=== PATIENT | male | born 1980 | race Caucasian/White ===

== ENCOUNTER 2020-08-29 23:48 | Emergency (ER) | payer OTHER ==
[~2020-08-29] VITALS: Ht 175.3 cm; Wt 81.0 kg
[2020-08-30 00:07] VITALS: BP 138/70
--- NOTE | 2020-08-30 01:20 | RAD ---
XR RT WRIST 3VIEWS History: Reason: Right wrist injury, pain / Spl. Instructions: / History: Technique: 3 views right wrist Comparison: None. Findings: Normal alignment. No fracture. Soft tissues unremarkable. Impression: 1. No acute osseous abnormality. Electronically signed by: Hussein Wheat DO (08/30/2020 1:17 AM) [facility]
[2020-08-30] MEDS ORDERED: predniSONE 10 MG TABLET. PO ONE (01:30)
[2020-08-30] MEDS ORDERED: PRED50TA PO (01:34)
--- NOTE | 2020-08-30 01:35 | PHYS DOC ---
Past History Past Medical History: No Pertinent History Past Surgical History: No Surgical History Alcohol Use: None General Adult EDM: Chief Complaint: WRIST PAIN HPI: HPI: 40-year-old male presents with right wrist pain. The patient just moved here. He has . He has been moving a lot of boxes around. He started to have an aching in his wrist yesterday evening, but he woke up this morning and had significantly decreased use of his right hand. It is most painful to extend his wrist and to radially deviate. His gold and silver assayer strength is decreased. He denies numbness, tingling, or altered sensation. No direct injury or trauma. He has no other complaints this time. Review of Systems: Review of Systems: Constitutional: Denies fever or chills Eyes: Denies change in visual acuity HENT: Denies nasal congestion or sore throat Respiratory: Denies cough or shortness of breath Cardiovascular: Denies chest pain or edema GI: Denies abdominal pain, nausea, vomiting, bloody stools or diarrhea : Denies dysuria Musculoskeletal: Right wrist pain Integument: Denies rash Neurologic: Denies headache, focal weakness or sensory changes Endocrine: Denies polyuria or polydipsia Lymphatic: Denies swollen glands Psychiatric: Denies depression or anxiety Current Medications: Current Meds: Current Medications Medications (Trade) Dose Ordered Sig/[facility] Start Time Stop Time Status Last Admin Dose Admin Prednisone (Prednisone) 50 mg 1X ONCE 08/30/20 01:30 08/30/20 01:31 Allergies: Allergies: Allergies Coded Allergies Type Severity Reaction Last Updated Verified No Known Drug Allergies 08/30/20 No Physical Exam: PE: Constitutional: Well developed, well nourished, no acute distress, non-toxic appearance. [] HENT: Normocephalic, atraumatic, bilateral external ears normal, oropharynx moist, no oral exudates, nose normal. [] Eyes: PERRLA, EOMI, conjunctiva normal, no discharge. [] Neck: Normal range of motion, no tenderness, supple, no stridor. [] Cardiovascular:Heart rate regular rhythm, no murmur [] Lungs & Thorax: Bilateral breath sounds clear to auscultation [] Abdomen: Bowel sounds normal, soft, no tenderness, no masses, no pulsatile masses. [] Skin: Warm, dry, no erythema, no rash. [] Back: No tenderness, no CVA tenderness. [] Extremities: Right wrist with pain with active extension and radial deviation. No pain with passive motions in these planes. Decreased gold and silver assayer strength due to discomfort. [] Neurologic: Alert and oriented X 3, normal motor function, normal sensory function, no focal deficits noted. [] Psychologic: Affect normal, judgement normal, mood normal. [] Current Patient Data: Vital Signs: Vital Signs Date Time Temp Pulse Resp B/P (MAP) Pulse Ox O2 Delivery O2 Flow Rate FiO2 08/30/20 00:07 97.2 70 16 138/70 (92) 98 Room Air EKG: EKG: [] Radiology/Procedures: Radiology/Procedures: [] Impressions: XR RT WRIST 3VIEWS History: Reason: Right wrist injury, pain / Spl. Instructions: / History: Technique: 3 views right wrist Comparison: None. Findings: Normal alignment. No fracture. Soft tissues unremarkable. Impression: 1. No acute osseous abnormality. Electronically signed by: Norman Aj DO (08/30/2020 1:17 AM) [facility] DICTATED AND SIGNED BY: NORMAN AJ DO DATE: 08/30/20 011 CC: EMILY VEGA DO; PCP,UNKNOWN ~MTH0 0 Heart Score: C/O Chest Pain: N/A Risk Factors: Risk Factors: DM, Current or recent (<one month) smoker, HTN, HLP, family history of CAD, obesity. Risk Scores: Score 0 - 3: 2.5% MACE over next 6 weeks - Discharge Home Score 4 - 6: 20.3% MACE over next 6 weeks - Admit for Clinical Observation Score 7 - 10: 72.7% MACE over next 6 weeks - Early Invasive Strategies Course & Med Decision Making: Course & Med Decision Making Pertinent Labs and Imaging studies reviewed. (See chart for details) The patient's x-ray is unremarkable. Based on the history and exam I think this is just an overuse injury. We will place him in a splint and I will put him on prednisone for 4 days. We will give the first dose here in the ER. I have also recommended Voltaren gel [id number]. The patient is stable for discharge at this time. [] Dragon Disclaimer: Dragon Disclaimer: This electronic medical record was generated, in whole or in part, using a voice recognition dictation system. Departure Departure: Impression: Primary Impression: Right wrist sprain Qualified Codes: S63.501A - Unspecified sprain of right wrist, initial encounter Disposition: HOME / SELF CARE / HOMELESS Condition: STABLE Referrals: PCP,UNKNOWN (PCP) Patient Instructions: Wrist Sprain with [facility]hab[facility] Prednisone (PREDNISONE) 50 Mg Tablet 1 TAB PO DAILY for wrist pain for 3 Days, #3 TAB Prov: EMILY VEGA DO 08/30/20 EMILY VEGA DO Aug 30, 2020 01:34
== END 2020-08-30 01:40 | disposition home or self-care (01) ==
LOC: ER 23:48
DX: S63.501A Unspecified sprain of right wrist, initial encounter (principal); X50.9XXA Other and unspecified overexertion or strenuous movements or postures, initial encounter; Y93.89 Activity, other specified; Y92.89 Other specified places as the place of occurrence of the external cause; Y99.8 Other external cause status
CPT/HCPCS: 29125; 73110; 99283; J7512